=== PATIENT | female | born 1955 | race Caucasian/White ===

== ENCOUNTER 2021-12-05 12:17 | Outpatient (CLI) | payer MEDICARE, BC, SELFPAY ==
[2021-12-05 13:46] LABS: Basophils Absolute Auto 0.02 K/uL (0.00-0.30); Basophils Percent Auto 0.3 % (0.0-3.0); Eosinophils Absolute Auto 0.09 K/uL (0.00-0.50); Eosinophils Percent Auto 1.4 % (0.0-7.0); Hematocrit 45.2 % (33.0-51.0); Immature Granulocytes Abs Auto 0.01 K/uL (0.00-0.30); Lymphocytes Absolute Auto 1.77 K/uL (0.90-2.90); Lymphocytes Percent Auto 27.6 % (20-44); Mean Corpuscular HGB Conc 33 gm/dL (32-36); Mean Corpuscular Hemoglobin 30 pg (26-34); Mean Corpuscular Volume 89 fL (80-100); Monocytes Percent Auto 8.7 % (0.0-11.0); Neutrophils Absolute Auto 3.96 K/uL (1.7-7.0); Neutrophils Percent Auto 61.8 % (42.0-72.0); Platelet Count* 301 K/uL (140-440); RDW Coefficient of Variation % 13.5 % (11.5-15.5); Red Blood Count 5.09 m/uL (4.00-5.20); White Blood Count* 6.41 K/uL (4.50-11.00)
[2021-12-05 14:00] LABS: Slide Review Reflex No
[2021-12-05 14:57] LABS: Albumin* 4.8 g/dL (3.3-5.0); Chloride* 105 mmol/L (96-114); Potassium* 4.3 mmol/L (3.6-5.1); Sodium* 139 mmol/L (135-149)
[2021-12-05 14:59] LABS: Bilirubin Total* 0.4 mg/dL (0.1-1.5); Carbon Dioxide* 23 mmol/L (20-32); Cholesterol* 250 mg/dL (90-199); Creatinine* 0.8 mg/dL (0.5-1.5); Estimated Glomerular Filt Rate 81 ml/min
[2021-12-05 15:00] LABS: Alanine Aminotransferase* 23 U/L (4-35); Alkaline Phosphatase* 55 U/L (40-150); Aspartate Amino Transferase* 22 U/L (12-35); Blood Urea Nitrogen* 11 mg/dL (7-30); Glucose* 112 mg/dL (60-115); Total Protein* 7.5 g/dL (6.0-8.3); Triglycerides* 171 mg/dL (40-149)
[2021-12-05 15:01] LABS: Calcium* 10.1 mg/dL (8.4-10.6); HDL Cholesterol* 53 mg/dL (>=50); LDL Cholesterol Calculated 163 mg/dL (<100)
[2021-12-05 15:36] LABS: Free T4 Free Thyroxine* 1.04 ng/dL (0.70-1.85)
[2021-12-06 09:54] LABS: TPO Antibody 1.4 IU/mL (0.0-9.0); Thyroglobulin Antibody <0.9 IU/mL (0.0-4.0)
== END 2021-12-05 12:18 | disposition home or self-care (01) ==
PROVIDERS: PCP Family Medicine; Visit Provider Family Medicine
DX: R53.83 Other fatigue (principal); Z13.6 Encounter for screening for cardiovascular disorders; R73.02 Impaired glucose tolerance (oral); R30.0 Dysuria; F41.1 Generalized anxiety disorder
CPT/HCPCS: 80053; 80061; 84439; 84443; 84481; 85025; 86376; 86800; 87086

== ENCOUNTER 2023-09-08 14:10 | Outpatient (CLI) | payer MEDICARE, BC, SELFPAY | END 2023-09-08 14:11 | disposition home or self-care (01) | PROVIDERS: PCP Family Medicine; Visit Provider Family Medicine | DX: Z01.818 Encounter for other preprocedural examination (principal); Z13.6 Encounter for screening for cardiovascular disorders | CPT/HCPCS: 80048; 80061; 80076; 85025; 87086 ==

== ENCOUNTER 2023-11-25 11:30 | Day surgery (SDC) | payer MEDICARE, BC, SELFPAY ==
[2023-11-25] VITALS (20 sets, daily range): BP systolic 97–158; BP diastolic 59–86; PULSE 77–99; RESP 14–20; TEMP 36.1–36.8; O2SAT 95–99; BMI 32.3
[2023-11-25] MEDS: OXYCODONE (CR) 10 MG TAB.ER.12H PO (12:15)
[2023-11-25] MEDS: SODIUM CHLORIDE 0.9 % (FLUSH) 10 ML SYRINGE IVF (12:15)
[2023-11-25] MEDS: LACTATED RINGERS 1000 ML 1,000 ML 100 ML IV (12:15)
--- NOTE | 2023-11-25 12:15 | W.PM.H&PU ---
History & Physical Update History & Physical Update H&P Reviewed and patient assessed: No changes noted
--- NOTE | 2023-11-25 12:20 | CRLHL7_ITS ---
For Patients: As a result of the Cures Act, medical imaging exams and procedure reports are released immediately into your electronic medical record. You may view this report before your referring provider. If you have questions, please contact your health care provider. Indication: Postop Technique: Two views right knee Findings/Impression: Hardware from a right total knee arthroplasty is in satisfactory position. Bone alignment is normal. No sign of acute fracture. Postop changes are within normal limits. Dictated by Soto Christensen MD @ 11/26/2023 10:03:52 AM (Electronically Signed)
[2023-11-25] MEDS: fentaNYL 100 MCG/2 ML inj IVP (12:57)
[2023-11-25] MEDS: MIDAZOLAM HCL 1 MG/ML inj IVP (12:57)
--- NOTE | 2023-11-25 13:04 | W.PM.NB ---
Nerve Block Nerve Block Time Seen by Provider: 13:00 Date Seen: 11/25/23 Type of block requested by surgeon for post-operative analgesia: adductor canal Side: right Time out performed: Yes Verification of patient name: Yes Verification of date of : Yes Site marking: site marked Name of person performing procedure: Isacc Continuous monitoring Was continuous monitoring of O2 sat, B/P, traffic monitor specialist, recorded every 15 minutes?: Yes Procedure Checklist: sterile prep, needles and gloves Ultrasound guided. Images saved: Yes Medications given in 5ml increments after negative aspiration: Marcaine %: 0.25 mL: 15 Needle gauge: 20 Precedex (mcg): 25 Patient tolerated procedure well: Yes Additional comments: Needle noted adjacent to nerve Block Charges Block Charge (with Pro Fee): Femoral Nerve Use of Ultrasound Machine for Block: Yes- US Guidance/pain block
--- NOTE | 2023-11-25 13:05 | W.PM.NB ---
Nerve Block Nerve Block Time Seen by Provider: 13:00 Date Seen: 11/25/23 Type of block requested by surgeon for post-operative analgesia: geniculars Side: right Time out performed: Yes Verification of patient name: Yes Verification of date of : Yes Site marking: site marked Name of person performing procedure: Isacc Continuous monitoring Was continuous monitoring of O2 sat, B/P, cafeteria monitor, recorded every 15 minutes?: Yes Procedure Checklist: sterile prep, needles and gloves Medications given in 5ml increments after negative aspiration: Marcaine %: 0.25 mL: 9 Needle gauge: 25 Patient tolerated procedure well: Yes Block Charges Block Charge (with Pro Fee): Genicular Nerve Block Use of Ultrasound Machine for Block: No
--- NOTE | 2023-11-25 13:06 | W.ANESCHARGE ---
Anesthesia Charges Start Date/Time Anesthesia Start Date: 11/25/23 Anesthesia Start Time: 13:07 Stop Date/Time Anesthesia Stop Date: 11/25/23 Anesthesia Stop Time: 15:24
--- NOTE | 2023-11-25 13:07 | SUR.PREOP ---
TIME?OUT:?1257 PT/RN/MDA?VERIFICATION?OF?SURGICAL?SITE,?PROCEDURE,?AND?CONSENT OBTAINED?PRIOR?TO?INVASIVE?PROCEDURE.
--- NOTE | 2023-11-25 14:56 | PM.ORPRC ---
Procedure Note Date of procedure: 11/25/23 Procedure: PREOPERATIVE DIAGNOSIS: 1. Right knee osteoarthritis, primary, severe POSTOPERATIVE DIAGNOSIS: 1. Right knee osteoarthritis, primary, severe PROCEDURE: 1. Right total knee arthroplasty - subvastus SURGEON: Alton Barahona MD. QUALITY ASSURANCE SUPERVISOR TRIM: OPAL Grewal - Of note, a skilled assistant media buyer was critical for this case to aid in patient positioning, tissue retraction, limb manipulation/positioning, and closure. ANESTHESIA: Spinal anesthetic IMPLANTS: Vázquez and nephew all cemented TKA - journey 2 with Oxinium femur PS femur size 4, size 3 tibia, 10 poly spacer, 32 mm patella (with metallic ring removed) TOURNIQUET: 90 min at 300 torr EBL: 50 ml COMPLICATIONS: None evident INDICATIONS: The patient is a pleasant 60-year-old female who has experienced severe right knee pain and difficulty bearing weight. Workup included x-rays which revealed severe osteoarthrosis in the knee. Given the deformity, the dysfunction, and the pain, as well as the failure of nonoperative management, recommendation was made for surgery. FINDINGS: Full-thickness chondral loss diffusely throughout the medial and patellofemoral compartment and to a lesser degree lateral compartment. Degenerative meniscus pathology in both compartments. Large effusion upon entering the joint. Large osteophytes and loose bodies in the posterior recesses of the knee. DESCRIPTION OF PROCEDURE: Following a thorough discussion of risks, benefits, and alternatives consent was obtained and the right knee was marked. The patient was brought to the operating room and placed supine on the operating table. Induction of anesthesia was undertaken. 2 g IV Ancef and 1 g tranexamic acid was administered within 1 hr of incision preoperatively. Proper time-out was performed identifying proper patient, site, procedure. The operative extremity was prepped and draped in the appropriate sterile fashion using ChloraPrep after the patient was positioned supine with all bony prominences well padded. A longitudinal, anterior, midline skin incision was made starting approximately 3cm proximal to the superior pole of the patella and advanced distal to the tibial tubercle. A subvastus approach was utilized. A medial subperiosteal sleeve was created with knife, fraga elevator and curved osteotome. The retropatellar fatpad was resected and the synovium in the suprapatellar pouch excised to visualize the anterior femoral cortex. Femoral preparation was performed via an intramedullary guide. Step drill allowed access into the femoral canal. The distal cutting guide was placed with 5? of valgus and 10.5 mm cut on the distal femur. Femur was sized using a posterior referencing guide in 3? of external rotation. This found have a best fit with the sizing noted above. The 4 in 1 cutting block was then placed, and the distal femur shaped accordingly. The box cut was then created and the trial implant inserted to confirm appropriate fit. We turned our attention to the proximal tibia. Extramedullary guide was utilized for cutting with the goal of being 90 degree cut from the mechanical axis of the tibia in the varus/valgus plane utilizing tibial crest as the primary alignment. Initially a 2 mm resection was performed from the medial tibial plateau. Ultimately, balancing was achieved in both flexion and extension in both varus and valgus. The knee was able to achieve full extension as well comfortably. The patella was initially measured and found have a thickness of 23 mm. It was resected back to approximately 14.5 mm. It was sized to be a best fit with as noted above. This was drilled, trial placed. All trials were placed and found to have an excellent stability and balance. At this stage, trial implants were removed, the knee was thoroughly irrigated with normal saline, and the cement was mixed. After irrigation, the knee was thoroughly dried, and cement placed, with the real tibial and femoral implants placed along with the patella. Trial poly spacer was placed and confirmed to have excellent range of motion and full extension, and the real poly spacer opened and inserted. All extra cement was removed, and a 3 min Betadine soak performed. Finally, a final irrigation round with normal saline was performed. Closure performed with 0 Vicryl and #0 Stratafix for the quad tendon/retinaculum. 2-0 Vicryl for the subcutaneous and 4-0 Stratafix for subcuticular closure. Dressings were applied and the patient was awoken from anesthesia after the tourniquet deflated and transferred the PACU in stable condition. A skilled assistant media buyer was critical for this case to aid in patient positioning, tissue retraction, bone exposure, limb manipulation/positioning, patient safety, and closure. PLAN: 1. Weight bear as tolerated operative extremity. 2. 23 hr perioperative antibiotics. 3. Ice. 4. PT/OT consults for ambulation assistance/mobility education. 5. Social work consult for discharge planning. 6. DVT prophylaxis with at SCDs and aspirin twice daily.
--- NOTE | 2023-11-25 15:33 | W.ANESCHARGE ---
Anesthesia Charges Start Date/Time Anesthesia Start Date: 11/25/23 Anesthesia Start Time: 13:07 Stop Date/Time Anesthesia Stop Date: 11/25/23 Anesthesia Stop Time: 15:24
[2023-11-25] MEDS: fentaNYL 100 MCG/2 ML inj 50 MCG IVP (15:51)
[2023-11-25] MEDS: LACTATED RINGERS 1000 ML 1,000 ML 75 ML IV (16:57)
[2023-11-25] MEDS: OXYCODONE 5 MG TABLET PO ×2 (17:07→19:44)
--- NOTE | 2023-11-25 17:20 | PM.IMCN1 ---
Date of Consult Consult date: 11/25/23 Primary Care Provider: Soto Bennett MD Consult Narrative Narrative: Cailin Goel is a 68 year old female with past medical history of osteoarthritis of both knees, GERD, chronic interstitial cystitis, generalized anxiety disorder, who has been admitted electively for Right total knee arthroplasty. Total blood loss was about 50 mL only. Post operatively, patient was hemodynamically stable. Patient is doing well. Pain is controlled with pain medications. Order medical conditions were reviewed, all medication doses and frequencies were reviewed. Review of Systems Status of ROS: Reports: 6 or more systems reviewed and unremarkable except as noted in History and below [facility] Medical History (Updated 11/25/23 @ 17:26 by Britany Martinez MD) Health care directive on file ?Z78.9 - Other specified health status (ICD-10) Plantar fasciitis ?M72.2 - Plantar fascial fibromatosis (ICD-10) Allergic rhinitis ?J30.9 - Allergic rhinitis, unspecified (ICD-10) Chronic interstitial cystitis ?N30.10 - Interstitial cystitis (chronic) without hematuria (ICD-10) Glaucoma ?H40.9 - Unspecified glaucoma (ICD-10) GERD (gastroesophageal reflux disease) ?K21.9 - Gastro-esophageal reflux disease without esophagitis (ICD-10) Irritable bowel syndrome with diarrhea ?K58.0 - Irritable bowel syndrome with diarrhea (ICD-10) Subjective tinnitus (03/05/07) ?H93.19 - Tinnitus, unspecified ear (ICD-10) Otosclerosis ?H80.90 - Unspecified otosclerosis, unspecified ear (ICD-10) Major depressive disorder in partial remission ?F32.4 - Major depressive disorder, single episode, in partial remission (ICD-10) Hyperacusis ?H93.239 - Hyperacusis, unspecified ear (ICD-10) History of Crohn's disease ?Z87.19 - Personal history of other diseases of the digestive system (ICD-10) Generalized anxiety disorder ?F41.1 - Generalized anxiety disorder (ICD-10) Fibromyalgia (10/10/06) ?M79.7 - Fibromyalgia (ICD-10) Conductive hearing loss ?H90.2 - Conductive hearing loss, unspecified (ICD-10) Vaginal dryness ?N89.8 - Other specified noninflammatory disorders of vagina (ICD-10) Surgical History (Updated 11/25/23 @ 17:27 by Britany Martinez MD) Hx of arthroscopy of right knee ?Z98.890 - Other specified postprocedural states (ICD-10) Hx of resection of small bowel ?Z90.49 - Acquired absence of other specified parts of digestive tract (ICD-10) Hx of appendectomy ?Z90.49 - Acquired absence of other specified parts of digestive tract (ICD-10) History of vaginal hysterectomy (1990) ?Z90.710 - Acquired absence of both cervix and uterus (ICD-10) History of tonsillectomy (195) ?Z90.89 - Acquired absence of other organs (ICD-10) History of carpal tunnel surgery of left wrist (07/30/21) ?Z98.890 - Other specified postprocedural states (ICD-10) Family History Father Alcohol dependence High blood pressure Stroke Heart disease Diabetes Depression Mother Anxiety Arthritis Asthma Fibromyalgia Hyperlipidemia Obesity Osteoporosis Heart disease Depression Maternal Grandmother Brain tumor Aunt Brain tumor Uncle Brain tumor Social History (Updated 12/02/21 @ 10:58 by Oksana Jaquez ~ PSR) Narrative: 1 daughter non smoker no EtOH What is your current living situation?: I presently have a place to live Problems where you live: no known problems Problems where you live details: n/a In the past 12 months, utilities in danger of being shut off: no In past 12 months, lack of transportation kept you from medical appts, meetings, work, or getting things needed for daily living: no In the past 12 mos, have been you worried that your food would run out before you had money to buy more?: never true In the past 12 mos, the food you bought just didn't last and you didn't have money to buy more?: never true Smoking Status: Former smoker How often do you have a drink containing alcohol: monthly or less How many standard drinks containing alcohol do you have on a typical day: 1 or 2 How often do you have six or more drinks on one occasion: Never AUDIT-C Alcohol total score: 1 Non-prescribed substance use: denies use Caffeine: Yes (green tea) How often does anyone, including family, friends and others, physically hurt you: never How often does anyone, including family, friends and others, insult or talk down to you: never How often does anyone, including family, friends and others, threaten you with harm: never How often does anyone, including family, friends and others, scream or curse at you: never Little interest or pleasure in doing things: several days Feeling down, depressed, or hopeless: several days service: No Meds Home Medications and Allergies Home Medications ?Medication ?Instructions ?Recorded ?Confirmed ?Type aspirin 81 mg tablet,delayed 81 mg PO DAILY 11/03/23 11/25/23 History release (Adult Low Dose Aspirin) Estradiol cream 1 g vaginal BID PRN vaginal dryness 11/25/23 11/25/23 History clonazepam 0.5 mg tablet 0.5 mg PO HS 11/25/23 11/25/23 History lorazepam 0.5 mg tablet (Ativan) 0.5 mg PO DAILY PRN anxiety 11/25/23 11/25/23 History mirtazapine 15 mg tablet 15 mg PO HS 11/25/23 11/25/23 History Allergies Allergy/AdvReac Type Severity Reaction Status Date / Time rofecoxib Allergy Severe Demarco Verified 11/25/23 11:55 Esophagus celecoxib [From Celebrex] Allergy Intermediate Demarco Verified 11/25/23 11:55 Esophagus house dust Allergy Mild congestion Verified 11/25/23 11:55 mold Allergy Mild yeast Verified 11/25/23 11:55 nickel Allergy Mild Verified 11/25/23 11:55 egg AdvReac Unknown indigestion Verified 11/25/23 11:55 Exam Narrative: Exam Narrative: Physical exam GENERAL: Pleasant, comfortable, no acute distress. HEAD AND NECK: Atraumatic, normocephalic CARDIOVASCULAR: RRR. Normal S1, S2. No murmurs. No LE edema. RESPIRATORY: Clear to auscultation B/L. Good air entry B/L. No wheezes or rhonchi. GASTROINTESTINAL: Not distended, not tender to palpation. NEUROLOGY: Alert, awake, oriented X 3. Normal speech. PSYCH: Normal mood, normal affect. Const: Vital Signs, click to edit/add: Vital Signs - 24 hr 11/25/23 12:00 11/25/23 12:57 11/25/23 15:25 Temperature 97.6 F 97 F L Pulse Rate 94 91 84 Respiratory Rate 16 16 16 Blood Pressure 158/86 H 150/78 H 101/63 Pulse Oximetry 97 99 97 Oxygen Delivery Me thod Room Air Nasal Cannula Non Rebreather Mas k Oxygen Flow Rate 0 2 5 11/25/23 15:30 11/25/23 15:35 11/25/23 15:40 Temperature Pulse Rate 81 80 79 Respiratory Rate 14 14 14 Blood Pressure 97/59 L 117/71 113/72 Pulse Oximetry 98 95 96 Oxygen Delivery Me thod Non Rebreather Mas k Room Air Room Air Oxygen Flow Rate 5 11/25/23 15:45 11/25/23 15:50 11/25/23 15:55 Temperature 97.1 F L Pulse Rate 78 77 78 Respiratory Rate 14 14 14 Blood Pressure 118/69 131/76 126/75 Pulse Oximetry 96 97 98 Oxygen Delivery Me thod Room Air Room Air Room Air Oxygen Flow Rate 11/25/23 16:10 Temperature 97.4 F L Pulse Rate 78 Respiratory Rate 18 Blood Pressure 136/78 Pulse Oximetry 97 Oxygen Delivery Me thod Room Air Oxygen Flow Rate Assessment and Plan Assessment and plan (1) Status post total right knee replacement: Problem comment: -Start early ambulation with physical therapy. -Start DVT prophylaxis tonight w/ Aspirin 81 mg BID. -perioperative antibiotics -Monitor for urine output postoperatively, bladder scan if needed. - Social work consult for discharge planning. Status: Acute (2) Osteoarthritis of right knee: Problem comment: Severe, [id number] Status: Acute (3) Osteoarthritis of left knee: Problem comment: Severe, [id number] Status: Acute (4) Major depressive disorder in partial remission: Problem comment: -on mirtazapine q.h.s. Status: Chronic (5) Chronic interstitial cystitis: Problem comment: Not on medications History of increased urinary frequency Status: Acute (6) Generalized anxiety disorder: Problem comment: -on clonazepam 0.5 q.h.s. Status: Chronic (7) Fibromyalgia: Status: Chronic (8) Irritable bowel syndrome with diarrhea: Status: Chronic Plan As above Total Time Spent Total Time Spent: Time spent: Today I spent 75 minutes seeing the patient, discussing the patient with ER staff, reviewing Expanse and EPIC notes/diagnostics, discussing the care plan with our care time that includes social work, PT/OT, pharmacy and documenting my impressions and plan in the medical record.
[2023-11-25] MEDS: CEFAZOLIN 2 GM in 0.9 % SODIUM CHLORIDE Mini-bag 100 ML IVPB (18:40)
[2023-11-25] MEDS: SENNOSIDES 1 TAB TABLET 2 TAB PO (21:19)
[2023-11-25] MEDS: ASPIRIN 81 MG TABLET EC PO (21:19)
[2023-11-25] MEDS: LORazepam 0.5 MG TABLET PO (21:19)
[2023-11-26] MEDS: OXYCODONE 5 MG TABLET PO ×4 (00:32→10:35)
[2023-11-26] MEDS: LORazepam 0.5 MG TABLET PO (02:27)
[2023-11-26] MEDS: CEFAZOLIN 2 GM in 0.9 % SODIUM CHLORIDE Mini-bag 100 ML IVPB (02:48)
[2023-11-26 03:00] VITALS: BP 130/71; PULSE 90; RESP 18; TEMP 36.5; O2SAT 97
--- NOTE | 2023-11-26 06:18 | PC.NURSE ---
SHIFT NOTE 03-07: Pt pleasant, A&O. Afebrile, VSS on RA. Surgical dressing C/D/I, active ice on continuously. Pt reports adequate pain relief with PRN Oxycodone. Denies SOB, CP, and N/V. Up SBA with a walker, tolerating well.
[2023-11-26 06:32] LABS: Basophils Percent Auto 0.1 % (0.0-3.0); Hematocrit 36.8 % (33.0-51.0); Hemoglobin* 12.2 gm/dL (12.0-16.0); Immature Granulocytes Pct Auto 0.2 %; Mean Corpuscular HGB Conc 33 gm/dL (32-36); Mean Corpuscular Hemoglobin 30 pg (26-34); Mean Corpuscular Volume 90 fL (80-100); Monocytes Percent Auto 10.1 % (0.0-11.0); Neutrophils Percent Auto 82.6 % (42.0-72.0); Platelet Count* 253 K/uL (140-440); RDW Coefficient of Variation % 13.5 % (11.5-15.5); White Blood Count* 13.62 K/uL (4.50-11.00)
[2023-11-26 06:34] LABS: Slide Review Reflex No
[2023-11-26 06:46] LABS: Potassium* 4.1 mmol/L (3.6-5.1); Sodium* 136 mmol/L (135-149)
[2023-11-26 06:49] LABS: Blood Urea Nitrogen* 13 mg/dL (7-30); Creatinine* 0.7 mg/dL (0.5-1.5); Est. Creatinine Clearance* 48.45; Estimated Glomerular Filt Rate 94 ml/min
[2023-11-26 07:00] VITALS: PULSE 107; RESP 18; O2SAT 100
[2023-11-26 08:22] VITALS: BP 131/63; PULSE 107; RESP 18; TEMP 36.4; O2SAT 100
[2023-11-26] MEDS: ASPIRIN 81 MG TABLET EC PO (10:13)
[2023-11-26] MEDS: SENNOSIDES 1 TAB TABLET 2 TAB PO (10:14)
--- NOTE | 2023-11-26 11:13 | PC.NURSE ---
Discharged: Pt pleasant, alert, oriented and vitally stable. Pt pain rating 4-6/10, prn oxycodone given, pt stated improvement. Pt moves via stand by, tolerates well. Pt on a regular diet and tolerates well. Discharge instruction given to pt and spouse, topics including medications, symptoms worsening and follow up. Pt discharged home with spouse at 11:05.
== END 2023-11-26 11:05 | disposition home or self-care (01) ==
LOC: OR 11:33 → MEDSURG 11:35
PROVIDERS: PCP Family Medicine; Visit Provider Orthopaedic Surgery Sports Medicine
PROC: (CPT 27447; principal; 2023-11-25 12:30)
DX: M17.0 Bilateral primary osteoarthritis of knee (principal); G89.18 Other acute postprocedural pain; K21.9 Gastro-esophageal reflux disease without esophagitis; F41.1 Generalized anxiety disorder; N30.10 Interstitial cystitis (chronic) without hematuria; K58.0 Irritable bowel syndrome with diarrhea; M79.7 Fibromyalgia; F32.4 Major depressive disorder, single episode, in partial remission
CPT/HCPCS: 27447; 01402; 36415; 64447; 64454; 73560; 76942; 82565; 84132; 84295; 84520; 85025; 97110; 97116; 97161; 97165; 97530; 97535; A9270; C1713; J0665; J0690; J1100; J2250; J2371; J2405; J2704; J3010; J7120

== ENCOUNTER 2025-01-19 12:14 | Outpatient (CLI) | payer MEDICARE, BC, SELFPAY | END 2025-01-19 12:15 | disposition home or self-care (01) | PROVIDERS: PCP Family Medicine; Visit Provider Family Medicine | DX: R03.0 Elevated blood-pressure reading, without diagnosis of hypertension (principal) | CPT/HCPCS: 80048; 80061 ==

== ENCOUNTER 2025-01-25 13:44 | Outpatient (CLI) | payer MEDICARE, BC, SELFPAY | END 2025-01-25 13:45 | disposition home or self-care (01) | LOC: RAD 13:45 | PROVIDERS: PCP Family Medicine; Visit Provider Family Medicine | DX: R07.9 Chest pain, unspecified (principal) | CPT/HCPCS: 93306 ==